=== PATIENT | female | born 1965 | race African-American/Black ===

== ENCOUNTER 2020-04-07 06:03 | Emergency (ER) | payer OTHER ==
[~2020-04-07] VITALS: Ht 170.2 cm; Wt 127.0 kg
[~2020-04-07 06:03] MED LIST: LISINOPRIL
[2020-04-07] MEDS ORDERED: KETOROLAC 60MG/2ML VIAL IM ONE (06:45)
[2020-04-07 08:41] VITALS: BP 171/111
== END 2020-04-07 08:42 | disposition home or self-care (01) ==
LOC: ER 06:03
DX: M79.18 Myalgia, other site (principal); V49.49XA Driver injured in collision with other motor vehicles in traffic accident, initial encounter; Y93.89 Activity, other specified; Y92.89 Other specified places as the place of occurrence of the external cause; Y99.8 Other external cause status; M79.602 Pain in left arm; E11.9 Type 2 diabetes mellitus without complications; I10 Essential (primary) hypertension; Z93.3 Colostomy status
CPT/HCPCS: 72125; 73030; 81025; 96372; 99284; J1885